=== PATIENT | female | born 1960 | race Caucasian/White ===

== ENCOUNTER → 2018-09-23 15:21 | Outpatient (CLI) | payer BC, SELFPAY ==
--- NOTE | 2018-09-23 | DI.MG.S_ITS ---
BILATERAL DIGITAL SCREENING MAMMOGRAM 3D/2D WITH CAD: 09/23/2018 CLINICAL: Routine screening. Family history of breast cancer. Comparison is made to exams dated: 09/16/2017 mammogram, 09/03/2016 mammogram, and 12/11/2015 mammogram - [facility]. The tissue of both breasts is heterogeneously dense. This may lower the sensitivity of mammography. Current study was also evaluated with a Computer Aided Detection (CAD) system. There is a benign biopsy clip in the right breast. No significant masses, calcifications, or other findings are seen in either breast. There has been no significant interval change. IMPRESSION: NEGATIVE There is no mammographic evidence of malignancy. A 1 year screening mammogram is recommended. This exam was interpreted at Station ID: [id number]. NOTE: For mammograms, a report in lay terms will be sent to the patient. Approximately 15% of breast malignancies will not be visualized mammographically. In the management of a palpable breast mass, a negative mammogram must not discourage biopsy of a clinically suspicious lesion. Electronically Signed By: Cameron malik/john:09/23/2018 16:24:33 copy to: EDNY PARTIDA copy to: JIMMY RUIZ letter sent: Normal Exam ACR BI-RADS Category 1: Negative [id number]
== END ==
PROVIDERS: Family Provider Family Medicine; PCP Family Medicine; Visit Provider Obstetrics & Gynecology
DX: Z12.31 Encounter for screening mammogram for malignant neoplasm of breast (principal); Z80.3 Family history of malignant neoplasm of breast
CPT/HCPCS: 77063; 77067

== ENCOUNTER → 2019-05-27 16:00 | Outpatient (CLI) | payer BC, SELFPAY ==
--- NOTE | 2019-05-27 | DI.MG.S_ITS ---
BILATERAL DIGITAL SCREENING MAMMOGRAM 3D/2D WITH CAD: 05/27/2019 CLINICAL: Routine screening. Family history of breast cancer. Comparison is made to exams dated: 09/23/2018 mammogram, 09/16/2017 mammogram, and 09/03/2016 mammogram - [facility]. The tissue of both breasts is heterogeneously dense. This may lower the sensitivity of mammography. Current study was also evaluated with a Computer Aided Detection (CAD) system. There is a biopsy clip in the right breast. No significant masses, calcifications, or other findings are seen in either breast. There has been no significant interval change. IMPRESSION: NEGATIVE There is no mammographic evidence of malignancy. A 1 year screening mammogram is recommended. This exam was interpreted at Station ID: [id number]. NOTE: For mammograms, a report in lay terms will be sent to the patient. Approximately 15% of breast malignancies will not be visualized mammographically. In the management of a palpable breast mass, a negative mammogram must not discourage biopsy of a clinically suspicious lesion. Electronically Signed By: Cameron malik/john:05/27/2019 16:34:20 copy to: DENY PARTIDA copy to: JIMMY RUIZ letter sent: Normal Exam ACR BI-RADS Category 1: Negative [id number]
== END ==
PROVIDERS: Family Provider Family Medicine; PCP Family Medicine; Visit Provider Obstetrics & Gynecology
DX: Z12.31 Encounter for screening mammogram for malignant neoplasm of breast (principal); Z80.3 Family history of malignant neoplasm of breast
CPT/HCPCS: 77063; 77067

== ENCOUNTER → 2020-03-03 11:18 | Outpatient (CLI) | payer BC, SELFPAY ==
--- NOTE | 2020-03-03 11:26 | DI.RAD.S_ITS ---
PROCEDURE: XR WRIST LT MIN 3V INDICATIONS: Pain TECHNIQUE: 4 views of the wrist were acquired. COMPARISON: None. FINDINGS: Bones: No fractures or dislocations. No suspicious bony lesions. Nonspecific marginal lucency projects in the 3rd metacarpal head. Soft tissues: No suspicious soft tissue calcifications. IMPRESSION: Negative examination. Dictated by: Hector Harper M.D. on 03/03/2020 at 14:09 Approved by: Hector Harper M.D. on 03/03/2020 at 14:10
--- NOTE | 2020-03-03 11:26 | DI.RAD.S_ITS ---
PROCEDURE: XR HAND RT MIN 3V INDICATIONS: Pain no trauma TECHNIQUE: 3 views of the hand(s) acquired. COMPARISON: None. FINDINGS: Bones: No fractures or dislocations. Carpal bones are normally aligned. No suspicious bony lesions. Osteophytosis and interphalangeal joint space narrowing is present at the 3rd and 5th DIP joints suggesting posttraumatic change. Soft tissues: No suspicious soft tissue calcifications. 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 Dictated by: Edyta Raymond M.D. on 03/03/2020 at 13:24 Approved by: Edyta Raymond M.D. on 03/03/2020 at 13:26
--- NOTE | 2020-03-03 11:26 | DI.RAD.S_ITS ---
PROCEDURE: XR HAND LT MIN 3V INDICATIONS: Pain no trauma TECHNIQUE: 3 views of the hand(s) acquired. COMPARISON: None. FINDINGS: Bones: No fractures or dislocations. Carpal bones are normally aligned. No suspicious bony lesions. Interphalangeal joint space narrowing and osteophytosis is present at the 3rd DIP joint. Soft tissues: No suspicious soft tissue calcifications. IMPRESSION: Degenerative change at the 3rd DIP joint likely posttraumatic in nature. Dictated by: Edyta Raymond M.D. on 03/03/2020 at 13:26 Approved by: Edyta Raymond M.D. on 03/03/2020 at 13:26
== END ==
PROVIDERS: Family Provider Family Medicine; PCP Family Medicine; Referring Provider Family Medicine; Visit Provider Family Medicine
DX: M79.642 Pain in left hand (principal); M79.641 Pain in right hand; M25.532 Pain in left wrist; M25.742 Osteophyte, left hand; M25.741 Osteophyte, right hand
CPT/HCPCS: 73110; 73130

== ENCOUNTER → 2020-03-18 08:39 | Outpatient (CLI) | payer BC, SELFPAY ==
--- NOTE | 2020-03-18 08:40 | DI.MRI.S_ITS ---
PROCEDURE: MR WRIST LT WO CON INDICATIONS: Wrist pain TECHNIQUE: Noncontrast coronal proton density fast spin echo and T2 fast spin echo with fat saturation; coronal 3-D gradient echo, axial T1 spin echo and T2 fast spin echo with fat saturation, sagittal T1 spin echo through the wrist. COMPARISON: [facility], CR, XR WRIST LT MIN 3V, 03/03/2020, 11:33. FINDINGS: Image quality: Excellent. Bones and cartilage: The carpal bones are normally aligned. No bone marrow contusions or fractures. No evidence for avascular necrosis. Mild degenerative changes are seen at the 1st carpometacarpal joint. Carpal ligaments: Increased signal is seen in the membranous portion of the scapholunate ligament, likely representing mild degeneration or degenerative perforation. There is no widening of the scapholunate interval. The lunotriquetral ligament is intact. Triangular fibrocartilage complex: There is a small central degenerative perforation in the triangle fibrocartilage disc. The radial and ulnar attachments are intact. Tendons and soft tissues: The carpal tunnel structures appear normal, including the median nerve. The ulnar nerve appears normal within Guyon's canal. All six extensor tendon compartments demonstrate normal morphology, without pathologic tendon sheath fluid. A lobulated ganglion cyst is seen posterior to the distal carpal tunnel that measures approximately 6 x 8 x 2 mm. An additional small ganglion cyst is seen at the dorsum of the wrist measuring 4 x 2 x 2 mm. IMPRESSION: 1. Small degenerative perforations are seen in the triangular fibrocartilage disc and the membranous portion of the scapholunate ligament without a significant ligament tear. 2. Mild 1st carpometacarpal joint degenerative osteoarthrosis. 3. Small ganglion cyst at the distal volar aspect of the wrist deep to the carpal tunnel measures 8 x 6 x 2 mm. A smaller ganglion cyst is seen at the dorsal aspect of the wrist measuring 4 x 2 x 2 mm. Dictated by: Juan Monge M.D. on 03/20/2020 at 8:53 Approved by: Juan Monge M.D. on 03/20/2020 at 9:02
== END ==
PROVIDERS: Family Provider Family Medicine; PCP Family Medicine; Referring Provider Family Medicine; Visit Provider Family Medicine
DX: M25.532 Pain in left wrist (principal); M18.12 Unilateral primary osteoarthritis of first carpometacarpal joint, left hand; M67.432 Ganglion, left wrist
CPT/HCPCS: 73221

== ENCOUNTER → 2020-03-24 11:23 | Outpatient (CLI) | payer BC, SELFPAY ==
[2020-03-24 12:14] LABS: Add Manual Diff / Slide Review NO; Basophils Absolute Auto 0 /uL (0-100); Basophils Percent Auto 0.5 % (0-2); Eosinophils Absolute Auto 100 /uL (0-450); Eosinophils Percent Auto 2.1 % (2-4); Hematocrit 39.8 % (36-46); Hemoglobin 13.1 g/dL (12.0-16.0); Lymphocytes Absolute Auto 1200 /uL (1100-4500); Lymphocytes Percent Auto 26.2 % (25-40); Mean Corpuscular HGB Conc 32.9 % (30-36); Mean Corpuscular Hemoglobin 29.9 PG (26-34); Mean Corpuscular Volume 90.8 fL (80-100); Monocytes Absolute Auto 300 /uL (0-900); Monocytes Percent Auto 7.3 % (3-14); Neutrophils Absolute Auto 2900 /uL (1500-7000); Neutrophils Percent Auto 63.9 % (50-75); Platelet Count 254 X10^3/uL (150-400); Red Blood Cell Count 4.39 X10^6/uL (4.0-5.2); Red Cell Distribution Width 12.9 % (11.6-14.8); White Blood Cell Count 4.5 X10^3/uL (4.5-11.0)
[2020-03-24 13:00] LABS: Alanine Aminotransferase 166 IU/L (<35); Albumin 4.8 g/dL (3.5-5.0); Albumin Globulin Ratio 1.9 (1.0-2.8); Alkaline Phosphatase 86 U/L (38-126); Aspartate Aminotransferase 100 IU/L (14-36); BUN Creatinine Ratio 32.4 (6-22); Bilirubin Total 0.8 mg/dL (0.2-1.3); Blood Urea Nitrogen 23 mg/dL (7-17); Calcium 10.2 mg/dL (8.4-10.2); Carbon Dioxide 29 mmol/L (22-32); Chloride 102 mmol/L (98-107); Cholesterol 184 mg/dL (140-199); Estimated Glomerular Filt Rate > 60.0 mL/min (>60); Globulin 2.5 g/dL (1.7-4.1); Glucose 101 mg/dL (70-100); HDL Cholesterol 62 mg/dL (40-60); HEMOLYSIS < 15 (0-50); LDL Cholesterol Calculated 99 mg/dL (<100); Potassium 5.1 mmol/L (3.4-5.1); Sodium 138 mmol/L (137-145); Total Protein 7.3 g/dL (6.3-8.2); Triglycerides 116 mg/dL (35-150)
== END ==
PROVIDERS: Family Provider Family Medicine; PCP Family Medicine; Referring Provider Family Medicine; Visit Provider Family Medicine
DX: E78.2 Mixed hyperlipidemia (principal)
CPT/HCPCS: 36415; 80053; 80061; 85025

== ENCOUNTER → 2020-04-07 09:43 | Outpatient (CLI) | payer BC, SELFPAY ==
--- NOTE | 2020-04-07 09:44 | DI.US.S_ITS ---
PROCEDURE: US ABDOMEN COMPLETE INDICATIONS: elevated lfts TECHNIQUE: Real-time scanning was performed of the abdominal and retroperitoneal organs, with image documentation. COMPARISON: [facility], CT, ABDOMEN/PELVIS WITH CONTRAST, 01/10/2011, 8:57. [facility], US, ABDOMEN COMPLETE, 11/13/2014, 12:52. [facility], US, ABDOMEN COMPLETE, 09/01/2015, 8:50. FINDINGS: Liver: Liver is normal in size and homogeneous in echotexture. Gallbladder: No findings of gallstones or sludge are seen. The gallbladder wall is not thickened, measuring 3 mm or less. No specific pericholecystic fluid is seen. The sonographic White sign is negative. Biliary ducts: Intrahepatic bile ducts are non-dilated. Extrahepatic bile duct caliber measures 3 mm. Normal is 6-7 mm or less in diameter, or 10 mm or less post-cholecystectomy. Pancreas: Visualized portions of the pancreas are sonographically normal. Spleen: Spleen is normal in size and homogeneous in echotexture. Kidneys: Kidneys are normal in size and echotexture. Right kidney measures 10.1 cm long; left kidney measures 10.4 cm long. No hydronephrosis is seen. However, there is trace right pelvicaliectasis. There is no nephrolithiasis. No solid masses. Aorta: Visualized aorta is normal in caliber at less than 3 cm. Iliacs: Proximal common iliac arteries are normal in caliber at less than 2.5 cm. IVC: Intrahepatic inferior vena cava is patent. Miscellaneous: No free abdominal fluid. IMPRESSION: Normal appearing liver. No biliary dilatation. Normal appearing gallbladder. Trace right kidney pelvicaliectasis, without danyell hydronephrosis. Dictated by: Kobe June M.D. on 04/07/2020 at 10:21 Approved by: Kobe June M.D. on 04/07/2020 at 10:24
== END ==
PROVIDERS: Family Provider Family Medicine; PCP Family Medicine; Referring Provider Family Medicine; Visit Provider Family Medicine
DX: R94.5 Abnormal results of liver function studies (principal)
CPT/HCPCS: 76700

== ENCOUNTER 2020-04-08 15:28 | Emergency (ER) | payer BC, SELFPAY ==
[2020-04-08 15:38] VITALS: BP 127/81; PULSE 99; RESP 22; TEMP 37; O2SAT 99; BMI 24.2
--- NOTE | 2020-04-08 15:58 | DI.RAD.S_ITS ---
PROCEDURE: XR WRIST RT MIN 3V INDICATIONS: wrist pain sp fall TECHNIQUE: 4 views of the wrist were acquired. COMPARISON: [facility], CR, XR HAND RT MIN 3V, 03/03/2020, 11:33. [facility], CT, CT HEAD/BRAIN WO CON, 04/08/2020, 16:24. [facility], CR, XR WRIST LT MIN 3V, 03/03/2020, 11:33. FINDINGS: Bones: No acute fractures or dislocations. No suspicious bony lesions. Remote trauma versus focal degenerative change can be seen involving the 3rd and 5th distal interphalangeal joints. Scaphoid view: No navicular fractures are seen. Soft tissues: No suspicious soft tissue calcifications. IMPRESSION: No acute fractures are seen. If there is snuffbox tenderness (or other clinical suspicion for a fracture not seen on these images) then a repeat examination would be recommended in 10 to 14 days, following splinting. Dictated by: Kobe June M.D. on 04/08/2020 at 15:45 Approved by: Kobe June M.D. on 04/08/2020 at 15:46
--- NOTE | 2020-04-08 15:59 | DI.CT.S_ITS ---
PROCEDURE: CT HEAD/BRAIN WO CON INDICATIONS: glf, hit head, n/v, dizzy TECHNIQUE: Noncontrast 4.5 mm thick angled axial sections acquired from the foramen magnum to the vertex, with coronal and sagittal reformats. For radiation dose reduction, the following was used: automated exposure control, adjustment of mA and/or kV according to patient size. COMPARISON: [facility], CT, SINUS WITHOUT CONTRAST, 07/09/2011, 8:58. [facility], CR, XR WRIST RT MIN 3V, 04/08/2020, 16:22. FINDINGS: Image quality: Excellent. CSF spaces: Basal cisterns are patent. No extra-axial fluid collections. Ventricles are normal in size and shape. Brain: No midline shift. No intracranial masses or hemorrhage. Mancini-white matter interface is normal. Skull and face: Calvarium and visualized facial bones are intact, without suspicious lesions. Sinuses: Visualized sinuses and mastoids are clear. IMPRESSION: No acute intracranial hemorrhage is seen. No acute intracranial process is seen. Dictated by: Kobe June M.D. on 04/08/2020 at 15:47 Approved by: Kobe June M.D. on 04/08/2020 at 15:48
[2020-04-08] MEDS: KETOROLAC 60 MG/2 ML VIAL 30 MG IM (17:08)
[2020-04-08 17:16] VITALS: BP 130/73; PULSE 86; RESP 14; O2SAT 99
--- NOTE | 2020-04-08 17:49 | ED_ITS ---
HPI - Fall <RANDY Ball-BC - Last Filed: 04/08/20 19:51> General Chief Complaint: Fall Stated Complaint: fall last night, hit head, R shldr pain Time Seen by Provider: 04/08/20 15:41 Source: patient and family Mode of arrival: Ambulatory Limitations: no limitations History of Present Illness HPI Narrative: The patient is a 59-year-old female former smoker with history of ganglionic cyst who presents with a chief complaint of a ground level fall last night where she hit her head. She states she had ?too much to drink in follow waited the bathroom. She does not remember the events. Her states that he heard her fall and went to check on her. We do not know if she lost consciousness or not. Now she feels lightheaded and dizzy, slightly nauseous at times. She denies any neck or back pain. She also complains of pain on her entire right arm, starting in her right wrist radiating up. She has not taken anything to feel better. She tried to apply ice, but it hurts her arm. She denies any numbness or tingling. She denies any neck pain or back pain. Related Data Home Medications Medication Instructions Recorded Confirmed [EYE DROPS ] Q DAY #0 06/04/11 03/03/20 Previous Rx's Medication Instructions Recorded loratadine-pseudoephedrine 1 t12 PO QDAY #30 01/07/12 [Claritin-D 12 Hour] ketorolac 10 mg PO TID PRN #14 tab 04/08/20 Allergies Allergy/AdvReac Type Severity Reaction Status Date / Time No Known Drug Allergies Allergy Verified 04/08/20 15:37 Review of Systems <TRACEY Ball - Last Filed: 04/08/20 19:51> Review of Systems Narrative: GENERAL: Denies chills, fatigue, malaise, fever, sweats. HEENT: Denies sinus pain, ear pain, sore throat, difficulty swallowing, dizziness. RESPIRATORY: Denies dyspnea, cough, wheezing, hemoptysis, sputum. CARDIOVASCULAR: Denies chest pain, palpitations, orthopnea, edema, GASTROINTESTINAL: See HPI : Denies dysuria, frequency, incontinence, hematuria, urinary retention. MUSCULOSKELETAL: See HPI SKIN: Denies rash, skin lesions, or other NEUROLOGIC: See HPI PSYCHIATRIC: No concerning psychosocial issues. 12 point review of systems is negative except for those stated above Patient History <TRACEY Ball - Last Filed: 04/08/20 19:51> Medical History (Updated 04/08/20 @ 17:52 by TRACEY Ball) Anorexia nervosa (Chronic) Chicken pox (Resolved) Environmental allergies (Chronic) Headache (Chronic ~1979) Herniated disc (Chronic) Measles (Resolved) Migraines (Resolved) Mumps (Resolved) Recurrent sinusitis (Chronic) Rosacea (Chronic) Vision disorder (Chronic) Surgical History (Updated 06/22/18 @ 20:34 by Liza Stewart) Anesthesia (Resolved) Breast cyst (Resolved) History of foot surgery (Resolved) History of surgery (Resolved ~06/04/11) History of tonsillectomy Status post hysterectomy (10/07/06) Status post laparoscopy (02/11/05) Family History (Updated 06/07/14 @ 00:00 by Conversion Provider) Brother Age: 55 Hypertension Father Age: 78 Heart disease Hypertension High cholesterol Osteoporosis Stroke Mother Age: 77 Hypertension Social History Smoking Status: Former smoker Smoking Status: Former smoker alcohol intake frequency: 3 or more drinks per day Substance Use Type: marijuana Exam <TRACEY Ball - Last Filed: 04/08/20 19:51> Narrative Exam Narrative: GENERAL: This is a well-nourished, well-developed patient, in no acute distress HEAD: Atraumatic. Normocephalic. No temporal or scalp tenderness. EYES: Pupils equal round and reactive. Extraocular motions intact. No scleral icterus. No injection or drainage. ENT: Nose without bleeding, purulent drainage or septal hematoma. Throat without erythema, tonsillar hypertrophy or exudate. Uvula midline. Airway patent. NECK: Trachea midline. No JVD or lymphadenopathy. Supple, nontender, no meningeal signs. CARDIOVASCULAR: Regular rate and rhythm RESPIRATORY: Clear to auscultation. Breath sounds equal bilaterally. No wheezes, rales, or rhonchi. No cough. No increased respiratory effort. No accessory muscle use. GASTROINTESTINAL: Abdomen soft, non-tender, nondistended. No hepato- splenomegaly, or palpable masses. No guarding. EXTREMITIES: General pain to palpation right hand and wrist, decreased range of motion all stacy. Positive snuffbox tenderness to palpation right wrist. Full range of motion noted right elbow, full range of motion noted right shoulder. No pain to palpation right elbow or shoulder. BACK: Nontender without deformity or crepitance. No flank tenderness. NEURO: AOx3. SKIN: No rash or erythema on visible skin. Initial Vital Signs Initial Vital Signs: Vital Signs Temperature 98.6 F 04/08/20 15:38 Pulse Rate 99 H 04/08/20 15:38 Respiratory Rate 22 04/08/20 15:38 Blood Pressure 127/81 04/08/20 15:38 Pulse Oximetry 99 04/08/20 15:38 <Derrek Krueger DO - Last Filed: 04/09/20 10:56> Initial Vital Signs Initial Vital Signs: Vital Signs Temperature 98.6 F 04/08/20 15:38 Pulse Rate 99 H 04/08/20 15:38 Respiratory Rate 22 04/08/20 15:38 Blood Pressure 127/81 04/08/20 15:38 Pulse Oximetry 99 04/08/20 15:38 Procedures <TRACEY Ball - Last Filed: 04/08/20 19:51> Orthopedic Splinting/Casting Injury #1: Side: right Upper Extremity Injury Location: wrist Upper Extremity Immobilizer: thumb spica Post splinting neuro exam: intact Post splinting vascular exam: intact Placed by: Nursing Scores <TRACEY Ball - Last Filed: 04/08/20 19:51> GCS [place] coma scale eye opening: Spontaneous Rosa coma scale verbal response: Orientated [place] coma scale motor response: Obey commands [place] coma scale total score: 15 Nexus Score for C-Spine Focal Neurologic deficit present: No Midline spinal tenderness present: No Altered level of conciousness present: No Intoxication present: No Distracting Injury Present: No Nexus Criteria for C-spine: 0 Course <TRACEY Ball - Last Filed: 04/08/20 19:51> Orders Ordered: Discontinued Medications Ketorolac Tromethamine (Toradol) 30 mg IM NOW ONE Stop: 04/08/20 17:04 Last Admin: 04/08/20 17:08 Dose: 30 mg Documented by: KBROTEM Ketorolac Tromethamine (Toradol 10mg Prepack) 1 bottle MISC SEEINSTR ONE Stop: 04/08/20 17:59 Last Admin: 04/08/20 18:05 Dose: 1 bottle Documented by: SHAHAB Vital Signs Vital signs: Vital Signs - 8 hr 04/08/20 15:38 04/08/20 17:16 04/08/20 17:57 Temperature 98.6 F Pulse Rate 99 H 86 82 Respiratory Rate 22 14 16 Blood Pressure 127/81 130/73 141/66 H Pulse Oximetry 99 99 100 04/08/20 18:17 Temperature 98.3 F Pulse Rate 76 Respiratory Rate 14 Blood Pressure 142/88 H Pulse Oximetry 100 <Derrek Krueger DO - Last Filed: 04/09/20 10:56> Orders Ordered: Discontinued Medications Ketorolac Tromethamine (Toradol) 30 mg IM NOW ONE Stop: 04/08/20 17:04 Last Admin: 04/08/20 17:08 Dose: 30 mg Documented by: PATRIA Ketorolac Tromethamine (Toradol 10mg Prepack) 1 bottle MISC SEEINSTR ONE Stop: 04/08/20 17:59 Last Admin: 04/08/20 18:05 Dose: 1 bottle Documented by: SHAHAB Vital Signs Vital signs: Vital Signs - 8 hr 04/08/20 15:38 04/08/20 17:16 04/08/20 17:57 Temperature 98.6 F Pulse Rate 99 H 86 82 Respiratory Rate 22 14 16 Blood Pressure 127/81 130/73 141/66 H Pulse Oximetry 99 99 100 04/08/20 18:17 Temperature 98.3 F Pulse Rate 76 Respiratory Rate 14 Blood Pressure 142/88 H Pulse Oximetry 100 MDM - Fall <TRACEY Ball - Last Filed: 04/08/20 19:51> Imaging Data CT scan - head: Radiologist's Impression: [address] [place] [id number] Scan Report Signed Patient: Jeannine Barbosa [facility]#: [id number] : 1960cct:[id number] Age/Sex: 59 / FDate of Service: 04/08/20 Loc: ED Accession Number: [id number] Procedure: CT head/brain wo con Ordering Provider: Kathie Cifuentes PROCEDURE: CT HEAD/BRAIN WO CON INDICATIONS: glf, hit head, n/v, dizzy TECHNIQUE: Noncontrast 4.5 mm thick angled axial sections acquired from the foramen magnum to the vertex, with coronal and sagittal reformats. For radiation dose reduction, the following was used: automated exposure control, adjustment of mA and/or kV according to patient size. COMPARISON: [facility], CT, SINUS WITHOUT CONTRAST, 07/09/2011, 8:58. [facility], CR, XR WRIST RT MIN 3V, 04/08/2020, 16:22. FINDINGS: Image quality: Excellent. CSF spaces: Basal cisterns are patent. No extra-axial fluid collections. Ventricles are normal in size and shape. Brain: No midline shift. No intracranial masses or hemorrhage. Mancini-white matter interface is normal. Skull and face: Calvarium and visualized facial bones are intact, without suspicious lesions. Sinuses: Visualized sinuses and mastoids are clear. IMPRESSION: No acute intracranial hemorrhage is seen. No acute intracranial process is seen. Dictated by: Kobe June M.D. on 04/08/2020 at 15:47 Approved by: Kobe June M.D. on 04/08/2020 at 15:48 Extremity x-ray #1: Radiologist's Impression: [address] [place] [address] XRay Report Signed Patient: Jeannine Barbosa [facility]#: [id number] : [id number]:[id number] Age/Sex: 59 / FDate of Service: 04/08/20 Loc: ED Accession Number: [id number] Procedure: XR wrist RT min 3V Ordering Provider: Kathie Cifuentes- PROCEDURE: XR WRIST RT MIN 3V INDICATIONS: wrist pain sp fall TECHNIQUE: 4 views of the wrist were acquired. COMPARISON: [facility], CR, XR HAND RT MIN 3V, 03/03/2020, 11:33. [facility], CT, CT HEAD/BRAIN WO CON, 04/08/2020, 16:24. [facility], CR, XR WRIST LT MIN 3V, 03/03/2020, 11:33. FINDINGS: Bones: No acute fractures or dislocations. No suspicious bony lesions. Remote trauma versus focal degenerative change can be seen involving the 3rd and 5th distal interphalangeal joints. Scaphoid view: No navicular fractures are seen. Soft tissues: No suspicious soft tissue calcifications. IMPRESSION: No acute fractures are seen. If there is snuffbox tenderness (or other clinical suspicion for a fracture not seen on these images) then a repeat examination would be recommended in 10 to 14 days, following splinting. Dictated by: Kobe June M.D. on 04/08/2020 at 15:45 Approved by: Kobe June M.D. on 04/08/2020 at 15:46 [facility] Narrative Medical decision making narrative: The patient is a 59-year-old female who presents with a chief complaint of a ground level fall last night. Given that she does not remember the event, believes that was due to drinking too much as she was intoxicated at the time, her current symptoms of lightheadedness and dizziness and nausea, did obtain a CT of her head. This came back with no acute findings. Imaging of her right arm also has no acute findings. Elected to image her right hand and wrist as this is where she is most painful. However she does have snuffbox pain to palpation, so she was placed in a thumb spica splint. She was given Toradol for pain control gave her prescription thereof. Discussed at length follow up with primary care provider, also gave her contact information to [facility]. Encouraged her to not drink as much in the future. Discussed at length brain rest over the next few days. Patient and have no questions or concerns upon discharge and state understanding of return precautions as well as follow-up care. Discharge Plan Departure Patient Disposition: Home Clinical Impression: Wrist pain Qualifiers: Laterality: right Qualified Code(s): M25.531 - Pain in right wrist Concussion Qualifiers: Encounter type: initial encounter Loss of consciousness presence/duration: without LOC Qualified Code(s): S06.0X0A - Concussion without loss of consciou sness, initial encounter Discharge Date/Time: 04/08/20 18:17 Instructions: DI for Concussion, How To Perform RICE (Rest, Ice, Compress, Elevate), How to Prevent Falls, How to Take Care of Your Splint Activity Restrictions/Additional Instructions: Thank you for trusting us with your care today. As I discussed, your x-ray shows no acute fracture. This does not rule out a soft tissue injury such as a ligament or tendon injury. It is important that you follow up with primary care provider, especially if worsening or no improvement. There can be fractures that did not show up on initial x-ray, which is why we have placed you in a splint. Please use rest ice compression elevation as well as cict-fvi-rhysfek pain medications as needed and able. I gave you a prescription of ketorolac or Toradol. I sent this to [email or web address]. I have given you a prescription of Toradol. This is an NSAID. Do not combine it with other NSAIDs such as Aleve or ibuprofen. I suggest taking it with some food, as it can irritate your stomach. ] I have also included contact information to [facility]. Please come back to the emergency department for any acute concerns. Please follow-up with care provider in the next few days. Prescriptions: New ketorolac 10 mg tablet 10 mg PO TID PRN (Reason: pain) Qty: 14 RF: 0 No Action [EYE DROPS ] Q DAY Qty: 0 RF: 0 loratadine-pseudoephedrine [Claritin-D 12 Hour] 5 MG/120 MG tablet extended release 12 hr 1 t12 PO QDAY Qty: 30 RF: 1 Referrals: [facility] [Provider Group] Ronn Gaitan MD [Primary Care Provider] - Stand Alone Forms: Work Release Note <Derrek Krueger DO - Last Filed: 04/09/20 10:56> [facility] Marquitaature Attestation: I was immediately available in the department for consultation. This documentation has been reviewed and I agree with assessment and plan. Supervised by Derrek Krueger DO
[2020-04-08 17:57] VITALS: BP 141/66; PULSE 82; RESP 16; O2SAT 100
[2020-04-08] MEDS: KETOROLAC 10MG PREPACK 1 BOTTLE MISC (18:05)
[2020-04-08 18:17] VITALS: BP 142/88; PULSE 76; RESP 14; TEMP 36.8; O2SAT 100
== END 2020-04-08 18:17 | disposition home or self-care (01) ==
PROVIDERS: Emergency Provider Nurse Practitioner Family; Family Provider Family Medicine; PCP Family Medicine
DX: S06.0X0A Concussion without loss of consciousness, initial encounter (principal); M25.531 Pain in right wrist; W19.XXXA Unspecified fall, initial encounter
CPT/HCPCS: 29125; 70450; 73110; 96372; 99284; J1885

== ENCOUNTER → 2020-04-13 16:01 | Outpatient (CLI) | payer BC, SELFPAY ==
--- NOTE | 2020-04-13 16:05 | DI.RAD.S_ITS ---
PROCEDURE: XR CERVICAL SPINE 2V OR 3V INDICATIONS: old injury; acute neck pain TECHNIQUE: 3 view(s) of the cervical spine were acquired. COMPARISON: None. FINDINGS: Bones: No fractures or dislocations to the 7 level. The lateral masses of C1 appear intact on the odontoid view. No suspicious bony lesions. Loss of lordosis which could be related to muscle spasm, rigidity or simply positional. Multilevel disc degeneration, severe at the C4-C5, C5-C6, C6-C7 and C7-T1 levels. Mild multilevel mid and lower cervical spine facet joint arthropathy and uncovertebral hypertrophy. Soft tissues: No prevertebral soft tissue swelling. IMPRESSION: Loss of lordosis and multilevel spondylosis. Dictated by: Terrell Mejia [facility] Interpreted: Hector Harper MD on 04/13/2020 at 16:55 Approved by: Hector Harper M.D. on 04/13/2020 at 17:08
== END ==
PROVIDERS: Family Provider Family Medicine; PCP Family Medicine; Referring Provider Family Medicine; Visit Provider Family Medicine
DX: M54.2 Cervicalgia (principal); M47.812 Spondylosis without myelopathy or radiculopathy, cervical region; Z87.828 Personal history of other (healed) physical injury and trauma
CPT/HCPCS: 72040

== ENCOUNTER → 2020-04-17 06:35 | Outpatient (CLI) | payer BC, SELFPAY ==
--- NOTE | 2020-04-17 06:36 | DI.MRI.S_ITS ---
PROCEDURE: MR WRIST RT WO CON INDICATIONS: Pain, brusing s/p fall on right wrist TECHNIQUE: Noncontrast coronal proton density fast spin echo and T2 fast spin echo with fat saturation; coronal 3-D gradient echo, axial T1 spin echo and T2 fast spin echo with fat saturation, sagittal T1 spin echo through the wrist. COMPARISON: [facility], CR, XR WRIST RT MIN 3V, 04/08/2020, 16:22. [facility], MR, MR WRIST LT WO CON, 03/18/2020, 8:48. FINDINGS: Image quality: Excellent. Bones and cartilage: The carpal bones are normally aligned. No bone marrow contusions or fractures. No evidence for avascular necrosis. Scattered degenerative changes and spurring. Carpal ligaments: Slight widened appearance of the scapholunate interval however technically measures within normal limits The scapholunate and lunotriquetral ligaments appear intact. In the absence of intra-articular contrast, the extrinsic carpal ligaments are not well identified. On sagittal images, the pisohamate ligament appears intact. Triangular fibrocartilage complex: The triangular fibrocartilage appears intact. The adjacent meniscal homolog appears normal in the absence of intra-articular contrast. The extensor carpi ulnaris tendon is normal in location and morphology. Tendons and soft tissues: The carpal tunnel structures appear normal, including the median nerve. The ulnar nerve appears normal within Guyon's canal. There is mild extensor carpi radialis longus tenosynovitis. No soft tissue ganglion cysts. IMPRESSION: No evidence of occult fracture. Mild extensor carpi radialis longus tenosynovitis. Dictated by: Hector Harper M.D. on 04/17/2020 at 8:11 Approved by: Hector Harper M.D. on 04/17/2020 at 9:03
== END ==
PROVIDERS: Family Provider Family Medicine; PCP Family Medicine; Referring Provider Family Medicine; Visit Provider Family Medicine
DX: S60.211A Contusion of right wrist, initial encounter (principal); M25.531 Pain in right wrist; M65.831 Other synovitis and tenosynovitis, right forearm; W19.XXXA Unspecified fall, initial encounter
CPT/HCPCS: 73221

== ENCOUNTER → 2020-05-16 16:07 | Outpatient (CLI) | payer BC, SELFPAY ==
--- NOTE | 2020-05-16 16:09 | DI.MRI.S_ITS ---
PROCEDURE: MR CERVICAL SPINE WO CON INDICATIONS: neck pain TECHNIQUE: Noncontrast sagittal T1 spin echo and T2 fast spin echo, sagittal STIR, foraminal oblique sagittal T2 fast spin echo, and axial gradient echo or T2 fast spin echo through the cervical spine. COMPARISON: [facility], CR, XR CERVICAL SPINE 2V OR 3V, 04/13/2020, 15:56. FINDINGS: Image quality: This examination is limited by involuntary motion artifact. Alignment and Curvature: There is reversal of the normal cervical lordosis, with apex at the C4-C5 level. There is minimal retrolisthesis seen at C4-C5 and C5-C6. Bone Marrow: Marrow demonstrates normal overall signal. Spinal Cord: Visualized spinal cord has normal size and signal. No cerebellar tonsillar herniation. Paraspinous Soft Tissues: No paravertebral masses. Prevertebral soft tissues are normal in thickness. C2-C3: Mild loss of disc height is seen. Loss of disc signal is seen. A mild degree of generalized disc osteophyte complex is seen. There is moderate to prominent right-sided and mild left-sided facet hypertrophy. There is moderate to severe right-sided and at least moderate left-sided neural foraminal narrowing seen. No significant central canal narrowing is seen. C3-C4: Moderate loss of disc height is seen. Loss of disc signal is seen. Moderate disc osteophyte complex is seen, which is eccentric to the left. Uncovertebral joint hypertrophy is seen at this level. Mild to moderate facet hypertrophy is seen. There is moderate to severe bilateral neural foraminal narrowing seen, left worse than right. Moderate central canal narrowing is seen. There is associated mass effect upon the ventral spinal cord. C4-C5: At least moderate loss of disc height and disc signal can be seen. At least moderate disc osteophyte complex is seen, which is eccentric to the right. There is a central/right disc osteophyte protrusion seen. Uncovertebral joint hypertrophy is seen at this level. Moderate facet joint hypertrophy is seen. Moderate to severe bilateral neural foraminal narrowing is seen. Moderate to severe central canal narrowing is seen. There is associated mass effect upon the ventral spinal cord. C5-C6: Moderate loss of disc height is seen. Loss of disc signal is seen. Moderate generalized disc osteophyte complex is seen. There is a central disc osteophyte protrusion seen. Uncovertebral joint hypertrophy is seen at this level. Mild facet joint hypertrophy is seen. Moderate to severe bilateral neural foraminal narrowing can be seen. At least moderate central canal narrowing is seen. There is associated mass effect upon the ventral spinal cord. C6-C7: Moderate to severe loss of disc height and disc signal can be seen. At least moderate disc osteophyte complex is seen, with a central/left disc osteophyte protrusion, as on series 5 images 28 and 29. Uncovertebral joint hypertrophy is seen at this level. Mild to moderate facet hypertrophy is seen. There is moderate to severe left-sided and moderate right-sided neural foraminal narrowing seen. At least moderate central canal narrowing is seen, with associated partial ventral cord flattening. C7-T1: At least moderate loss of disc height and disc signal can be seen. At least moderate disc osteophyte complex is seen. There is a mild central disc osteophyte protrusion seen. Moderate facet joint hypertrophy is seen. Moderate bilateral neural foraminal narrowing is seen. Moderate central canal narrowing is seen. IMPRESSION: Multiple levels of relatively prominent cervical spine degenerative change are seen. There is reversal of the normal cervical lordosis, with the apex at the C3-C4 level. Dictated by: Kobe June M.D. on 05/16/2020 at 16:46 Approved by: Kobe June M.D. on 05/16/2020 at 16:52
== END ==
PROVIDERS: Family Provider Family Medicine; PCP Family Medicine; Referring Provider Family Medicine; Visit Provider Family Medicine
DX: M50.31 Other cervical disc degeneration, high cervical region (principal); M40.50 Lordosis, unspecified, site unspecified
CPT/HCPCS: 72141

== ENCOUNTER → 2020-06-16 14:20 | Outpatient (CLI) | payer BC, SELFPAY ==
--- NOTE | 2020-06-16 | DI.MG.S_ITS ---
BILATERAL DIGITAL SCREENING MAMMOGRAM 3D/2D WITH CAD: 06/16/2020 CLINICAL: Routine screening. Family history of breast cancer. Comparison is made to exams dated: 05/27/2019 mammogram, 09/23/2018 mammogram, 09/16/2017 mammogram, and 09/03/2016 mammogram - [facility]. The tissue of both breasts is heterogeneously dense. This may lower the sensitivity of mammography. Current study was also evaluated with a Computer Aided Detection (CAD) system. There is a biopsy clip in the right breast. No significant masses, calcifications, or other findings are seen in either breast. There has been no significant interval change. IMPRESSION: NEGATIVE There is no mammographic evidence of malignancy. A 1 year screening mammogram is recommended. This exam was interpreted at Station ID: [id number]. NOTE: For mammograms, a report in lay terms will be sent to the patient. Approximately 15% of breast malignancies will not be visualized mammographically. In the management of a palpable breast mass, a negative mammogram must not discourage biopsy of a clinically suspicious lesion. Electronically Signed By: Edyta rosario/john:06/20/2020 10:16:46 copy to: DENY PARTIDA copy to: JIMMY RUIZ letter sent: Normal Exam ACR BI-RADS Category 1: Negative 3341F
== END ==
PROVIDERS: Family Provider Family Medicine; PCP Family Medicine; Referring Provider Family Medicine; Visit Provider Family Medicine
DX: Z12.31 Encounter for screening mammogram for malignant neoplasm of breast (principal); Z80.3 Family history of malignant neoplasm of breast
CPT/HCPCS: 77063; 77067

== ENCOUNTER → 2021-06-19 15:49 | Outpatient (CLI) | payer BC, SELFPAY ==
--- NOTE | 2021-06-19 15:50 | DI.MG.S_ITS ---
BILATERAL DIGITAL SCREENING MAMMOGRAM 3D/2D WITH CAD: 06/19/2021 CLINICAL: Routine screening. Family history of breast cancer. Comparison is made to exams dated: 06/16/2020 mammogram, 05/27/2019 mammogram, 09/23/2018 mammogram, and 09/16/2017 mammogram - [facility]. The tissue of both breasts is heterogeneously dense. This may lower the sensitivity of mammography. Current study was also evaluated with a Computer Aided Detection (CAD) system. There is a biopsy clip in the right breast. No significant masses, calcifications, or other findings are seen in either breast. There has been no significant interval change. IMPRESSION: NEGATIVE There is no mammographic evidence of malignancy. A 1 year screening mammogram is recommended. This exam was interpreted at Station ID: [id number]. NOTE: For mammograms, a report in lay terms will be sent to the patient. Approximately 15% of breast malignancies will not be visualized mammographically. In the management of a palpable breast mass, a negative mammogram must not discourage biopsy of a clinically suspicious lesion. Electronically Signed By: Juan zeng/john:06/20/2021 09:44:41 copy to: JIMMY RUIZ letter sent: Normal Exam ACR BI-RADS Category 1: Negative 3341F
== END ==
PROVIDERS: Family Provider Family Medicine; PCP Family Medicine; Referring Provider Obstetrics & Gynecology; Visit Provider Obstetrics & Gynecology
DX: Z12.31 Encounter for screening mammogram for malignant neoplasm of breast (principal); Z80.3 Family history of malignant neoplasm of breast
CPT/HCPCS: 77063; 77067

== ENCOUNTER → 2022-02-08 13:27 | Outpatient (CLI) | payer BC, SELFPAY ==
[2022-02-08 15:48] LABS: Alanine Aminotransferase 62 IU/L (<35); Albumin 4.9 g/dL (3.5-5.0); Alkaline Phosphatase 78 U/L (38-126); Aspartate Aminotransferase 36 IU/L (14-36); BUN Creatinine Ratio 33.3 (6-22); Bilirubin Total 0.6 mg/dL (0.2-1.3); Blood Urea Nitrogen 21 mg/dL (7-17); Calcium 9.4 mg/dL (8.4-10.2); Carbon Dioxide 28 mmol/L (22-32); Chloride 104 mmol/L (98-107); Cholesterol 229 mg/dL (140-199); Creatine Kinase 65 U/L (30-135); Estimated Glomerular Filt Rate > 60 mL/min (>60); Globulin 2.4 g/dL (1.7-4.1); Glucose 94 mg/dL (80-110); HDL Cholesterol 59 mg/dL (40-60); HEMOLYSIS < 15 (0-50); Iron 64 ug/dL (37-170); LDL Cholesterol Calculated 157 mg/dL (<100); Potassium 3.8 mmol/L (3.4-5.1); Sodium 141 mmol/L (137-145); Total Protein 7.3 g/dL (6.3-8.2); Triglycerides 64 mg/dL (35-150)
[2022-02-08 15:59] LABS: Percent Iron Saturation 25 % (15-50); Total Iron Binding Capacity 260 ug/dL (265-497); Transferrin 225 mg/dL (206-381)
[2022-02-08 16:19] LABS: TSH w/ Reflex to FT4 1.55 uIU/mL (0.47-4.68)
[2022-02-09 03:49] LABS: Ceruloplasmin 23.9 mg/dL (19.0-39.0)
[2022-02-12 13:33] LABS: Smooth Muscle Antibody 4 Units (0-19)
[2022-02-13 17:08] LABS: ANA Screen, IFA Positive (.)
== END ==
PROVIDERS: Family Provider Family Medicine; PCP Internal Medicine; Referring Provider Internal Medicine; Visit Provider Internal Medicine
DX: R94.5 Abnormal results of liver function studies (principal); Z13.6 Encounter for screening for cardiovascular disorders
CPT/HCPCS: 36415; 80053; 80061; 82390; 82550; 83516; 83540; 83550; 84443; 86038

== ENCOUNTER → 2022-05-02 11:32 | Outpatient (CLI) | payer BC, SELFPAY ==
[2022-05-02 12:24] LABS: COVID19 -Nasal RAPID Negative (Negative)
== END ==
PROVIDERS: Family Provider Family Medicine; PCP Internal Medicine; Visit Provider Surgery
DX: Z20.822 Contact with and (suspected) exposure to COVID-19 (principal); Z01.812 Encounter for preprocedural laboratory examination
CPT/HCPCS: 87635; C9803

== ENCOUNTER 2022-05-03 08:50 | Day surgery (SDC) | payer BC, SELFPAY ==
[2022-05-03 09:23] VITALS: BMI 25.8
[2022-05-03 09:37] VITALS: BP 153/78; PULSE 70; RESP 14; TEMP 36.3; O2SAT 98
--- NOTE | 2022-05-03 09:38 | PM.HP.1 ---
History of Present Illness History of Present Illness Date Patient Seen: 05/03/22 Time Patient Seen: 09:38 Chief complaint: Colonoscopy Narrative: Screening colonoscopy for cancer. this is her second, last one was 10 years ago. No family history or symptoms of concern. Patient History Medical History Anorexia nervosa Chicken pox COVID-19 (~01/2022) Environmental allergies Headache (~1979) Herniated disc Measles Migraines Mumps Recurrent sinusitis Rosacea Vision disorder Surgical History Anesthesia Breast cyst History of foot surgery History of surgery (~06/04/11) History of tonsillectomy Status post hysterectomy (10/07/06) Status post laparoscopy (02/11/05) Family & Social History Family History Brother Age: 57 Hypertension Father Age: 80 Heart disease Hypertension High cholesterol Osteoporosis Stroke Mother Age: 79 Hypertension Social History: household members spouse Tobacco & Substance use: Smoking Status Former smoker alcohol intake current alcohol intake frequency 0-2 drinks per day Substance Use Type does not use Meds Home Medications and Allergies Home Medications Medication Instructions Recorded Confirmed Type [EYE DROPS ] 1 100 ml EYE-BOTH Q DAY ##0 06/04/11 05/03/22 History loratadine 10 mg tablet (Claritin) 10 mg PO QPM 01/01/22 05/03/22 History metronidazole 0.75 % lotion 1 applic topical DAILY rosacea 01/01/22 05/03/22 History Allergies Allergy/AdvReac Type Severity Reaction Status Date / Time No Known Drug Allergies Allergy Verified 05/03/22 09:18 Review of Systems Review of Systems ROS: Yes All systems reviewed with the patient and are negative except as otherwise documented Exam Const General: cooperative, healthy appearing and comfortable [facility] Head: normocephalic and atraumatic Eyes General: appearance normal, both eyes and all related structures Sclera: sclerae normal Neck Neck: trachea midline Chest Chest: normal inspection of the chest Resp Effort & Inspection: normal respiratory effort Cardio Rate: regular rate Rhythm: regular rhythm GI Inspection: normal to inspection Skin General: no rashes or lesions noted Hair: normal Neuro General: patient alert, patient awake and patient oriented x3 Extrem General: full ROM Psych Appearance: grossly normal Thought Process: normal Judgment: judgment good Assessment & Plan Assessment & Plan narrative: Colon cancer screening Plan: colonoscopy with moderate sedation COVID-19 COVID-19 status: Negative Time Spent With Patient Time with patient: less than 30 minutes Critical Care time: I spent a total of [] minutes of critical care time on this patient's care today; this time is exclusive of procedural time.
[2022-05-03] MEDS: MIDAZOLAM 5 MG/5 ML VIAL 10 MG IV (10:01)
[2022-05-03] MEDS: fentaNYL 100 MCG/2 ML INJ 200 MCG IV (10:01)
--- NOTE | 2022-05-03 10:10 | PM.OP.COLON ---
Operative Date/Time/Diagnoses Date of procedure: 05/03/22 Time of procedure: 10:10 Pre-op diagnosis: Colon cancer screening Post-op diagnosis: same Procedure & Clinicians Study performed: Colonoscopy with moderate sedation Same procedure as scheduled: Yes Indications: Colon cancer screening Surgeon: Roxanne Vidal Procedure Notes Procedure in detail: Preop diagnosis: Colon cancer screening Postop diagnosis: Same Operative procedure: Colonoscopy with moderate sedation Surgeon: Audra Vidal MD Anesthetic: Fentanyl 200 mcg, Versed 10 mg Findings: No polyps, no diverticulosis. Procedure: Patient placed in lateral position. Rectal exam performed showing normal tone no masses. Scope inserted to the rectum and advanced to ileocecal valve with minimal difficulty. Abdominal pressure required in the ascending colon. Retroflex performed in the rectum. Impression: Normal colonoscopy. No polyps, no diverticulosis. Plan: Repeat colonoscopy in 10 years unless otherwise indicated by change in clinical condition Sedation minutes: 17 Specimen(s): none sent Complications: none Post-procedure Recommendations: Colonoscopy in 10 years Follow up: as needed Disposition: PACU
[2022-05-03 10:13] VITALS: BP 117/74; PULSE 77; RESP 12; TEMP 36.1; O2SAT 96
[2022-05-03 10:18] VITALS: BP 116/68; PULSE 68; RESP 11; O2SAT 95
[2022-05-03 10:23] VITALS: BP 115/67; PULSE 68; RESP 13; O2SAT 97
[2022-05-03 10:28] VITALS: BP 112/60; PULSE 70; RESP 12; O2SAT 97
[2022-05-03 10:32] VITALS: BP 119/78; PULSE 70; RESP 14; TEMP 36.1; O2SAT 97
== END 2022-05-03 10:57 | disposition home or self-care (01) ==
PROVIDERS: Family Provider Family Medicine; PCP Internal Medicine; Referring Provider Surgery; Visit Provider Surgery
PROC: 0DJD8ZZ Inspection of Lower Intestinal Tract, Via Natural or Artificial Opening Endoscopic (ICD-10-PCS; CPT 45378; principal; 2022-05-03 10:00)
DX: Z12.11 Encounter for screening for malignant neoplasm of colon (principal)
CPT/HCPCS: 45378; 99152; J2250; J3010

== ENCOUNTER → 2022-05-13 12:21 | Outpatient (CLI) | payer BC, SELFPAY | PROVIDERS: Family Provider Family Medicine; PCP Internal Medicine; Referring Provider Obstetrics & Gynecology; Visit Provider Obstetrics & Gynecology | DX: Z13.820 Encounter for screening for osteoporosis (principal); Z78.0 Asymptomatic menopausal state; Z90.710 Acquired absence of both cervix and uterus | CPT/HCPCS: 77080 ==

== ENCOUNTER → 2022-07-24 15:57 | Outpatient (CLI) | payer BC, SELFPAY ==
--- NOTE | 2022-07-24 15:58 | DI.MG.S_ITS ---
BILATERAL DIGITAL SCREENING MAMMOGRAM 3D/2D WITH CAD: 07/24/2022 CLINICAL: Routine screening. Family history of breast cancer. Comparison is made to exams dated: 06/19/2021 mammogram, 06/16/2020 mammogram, and 05/27/2019 mammogram - [facility]. Both breasts are heterogeneously dense, which may obscure small masses (category c / 51-75% glandular tissue). Current study was also evaluated with a Computer Aided Detection (CAD) system. There is a biopsy clip in the right breast. No significant masses, calcifications, or other findings are seen in either breast. There has been no significant interval change. IMPRESSION: NEGATIVE There is no mammographic evidence of malignancy. A 1 year screening mammogram is recommended. Based on the Tyrer Cuzick model (a risk assessment model) the patient's lifetime risk is 14.6% and her 10 year risk is 6.2%. According to the ACR, ACS, and NCCN guidelines, an annual breast MRI exam along with mammogram is recommended if the patient's lifetime risk is 20% or greater. This exam was interpreted at Station ID: [id number]. NOTE: For mammograms, a report in lay terms will be sent to the patient. Approximately 15% of breast malignancies will not be visualized mammographically. In the management of a palpable breast mass, a negative mammogram must not discourage biopsy of a clinically suspicious lesion. Electronically Signed By: Sammy Jeffers M.D., jr/john:07/25/2022 11:16:16 copy to: JIMMY RUIZ letter sent: Normal Exam ACR BI-RADS Category 1: Negative 3341F
== END ==
PROVIDERS: Family Provider Family Medicine; PCP Internal Medicine; Referring Provider Obstetrics & Gynecology; Visit Provider Obstetrics & Gynecology
DX: Z12.31 Encounter for screening mammogram for malignant neoplasm of breast (principal); Z80.3 Family history of malignant neoplasm of breast
CPT/HCPCS: 77063; 77067

== ENCOUNTER → 2023-01-06 06:59 | Outpatient (CLI) | payer BC, SELFPAY ==
[2023-01-06 08:35] LABS: Alanine Aminotransferase 56 IU/L (<35); Albumin 4.9 g/dL (3.5-5.0); Albumin Globulin Ratio 1.9 (1.0-2.8); Alkaline Phosphatase 78 U/L (38-126); Aspartate Aminotransferase 40 IU/L (14-36); Bilirubin Total 0.8 mg/dL (0.2-1.3); Bilirubin Unconjugated 0.6 mg/dL (0.0-1.1); Blood Urea Nitrogen 20 mg/dL (7-17); Calcium 9.9 mg/dL (8.4-10.2); Carbon Dioxide 30 mmol/L (22-32); Chloride 101 mmol/L (98-107); Cholesterol 219 mg/dL (140-199); Estimated Glomerular Filt Rate > 60 mL/min (>60); Globulin 2.6 g/dL (1.7-4.1); Glucose 101 mg/dL (80-110); HDL Cholesterol 78 mg/dL (40-60); HEMOLYSIS < 15 (0-50); LDL Cholesterol Calculated 109 mg/dL (<100); Potassium 4.6 mmol/L (3.4-5.1); Sodium 139 mmol/L (137-145); Total Protein 7.5 g/dL (6.3-8.2); Triglycerides 161 mg/dL (35-150)
== END ==
PROVIDERS: Family Provider Family Medicine; PCP Internal Medicine; Referring Provider Internal Medicine; Visit Provider Internal Medicine
DX: R94.5 Abnormal results of liver function studies (principal); Z13.220 Encounter for screening for lipoid disorders; Z13.6 Encounter for screening for cardiovascular disorders
CPT/HCPCS: 36415; 80048; 80061; 80076

== ENCOUNTER → 2023-09-26 07:44 | Outpatient (CLI) | payer BC, SELFPAY ==
--- NOTE | 2023-09-26 07:46 | DI.MG.S_ITS ---
BILATERAL DIGITAL SCREENING MAMMOGRAM 3D/2D WITH CAD: 09/26/2023 CLINICAL: Routine screening. Family history of breast cancer. Comparison is made to exams dated: 07/24/2022 mammogram, 06/19/2021 mammogram, and 06/16/2020 mammogram - [facility]. Both breasts are heterogeneously dense, which may obscure small masses (category c / 51-75% glandular tissue). Current study was also evaluated with a Computer Aided Detection (CAD) system. There are benign post operative findings and biopsy clip in the right breast. No significant masses, calcifications, or other findings are seen in either breast. There has been no significant interval change. IMPRESSION: BENIGN There is no mammographic evidence of malignancy. A 1 year screening mammogram is recommended. Based on the Tyrer Cuzick model (a risk assessment model) the patient's lifetime risk is 14.2% and her 10 year risk is 6.3%. According to the ACR, ACS, and NCCN guidelines, an annual breast MRI exam along with mammogram is recommended if the patient's lifetime risk is 20% or greater. This exam was interpreted at Station ID: [id number]. NOTE: For mammograms, a report in lay terms will be sent to the patient. Approximately 15% of breast malignancies will not be visualized mammographically. In the management of a palpable breast mass, a negative mammogram must not discourage biopsy of a clinically suspicious lesion. Electronically Signed By: Sonya Hdez M.D., PH.D eb/penrad:09/26/2023 23:30:31 copy to: JIMMY RUIZ letter sent: Normal Exam ACR BI-RADS Category 2: Benign Finding(s) 3342F
== END ==
LOC: MAMMO 07:45
PROVIDERS: Family Provider Family Medicine; PCP Internal Medicine; Referring Provider Obstetrics & Gynecology; Visit Provider Obstetrics & Gynecology
DX: Z12.31 Encounter for screening mammogram for malignant neoplasm of breast (principal); Z80.3 Family history of malignant neoplasm of breast; R92.333 Mammographic heterogeneous density, bilateral breasts
CPT/HCPCS: 77063; 77067

== ENCOUNTER → 2024-10-07 15:38 | Outpatient (CLI) | payer BC, SELFPAY ==
--- NOTE | 2024-10-07 15:42 | DI.MG.S_ITS ---
MM screening mammo BI: 10/07/2024. BI-RADS: 2 CLINICAL: 64-year old female for bilateral screening mammogram. Tyrer-Cuzick lifetime risk of 13.6%. No personal or first-degree family history of breast cancer. Current reported family history of breast cancer: maternal aunt and second maternal aunt. The patient had a prior right breast biopsy. PRIOR EXAMS 09/26/2023, 07/24/2022, 06/19/2021, 06/16/2020, 05/27/2019, 09/23/2018, 09/16/2017, 09/03/2016, 12/11/2015, 12/05/2014. MAMMOGRAPHY TECHNIQUE: 2D and 3D (tomosynthesis) digital mammographic views obtained, with additional images as needed for full coverage. Current study was also evaluated with a Computer Aided Detection (CAD) system. DENSITY C. The breasts are heterogeneously dense, which may obscure small masses. MAMMOGRAPHY FINDINGS Right: Biopsy marker present on the right. There are no suspicious masses, calcifications, or other findings in the breast. No significant change from comparison. Left: Benign-appearing masses noted on the left. There are no suspicious masses, calcifications, or other findings in the breast. No significant change from comparison. IMPRESSION: * No evidence of malignancy with benign findings. RECOMMENDATIONS Bilateral * Annual screening mammography. OVERALL ASSESSMENT CATEGORY BI-RADS-2: Benign. The [employer] recommends annual screening mammography beginning at age 40 for women with average risk of breast cancer. ELECTRONICALLY SIGNED: Aimee Moreno M.D. on 10/08/2024 at 09:00:45 AM PT Interpreting Station ID: [id number]
== END ==
PROVIDERS: Family Provider Family Medicine; PCP Internal Medicine; Referring Provider Internal Medicine; Visit Provider Internal Medicine
DX: Z12.31 Encounter for screening mammogram for malignant neoplasm of breast (principal); Z80.3 Family history of malignant neoplasm of breast; R92.333 Mammographic heterogeneous density, bilateral breasts
CPT/HCPCS: 77063; 77067

== ENCOUNTER → 2024-11-11 08:55 | Outpatient (CLI) | payer BC, SELFPAY ==
[2024-11-11 10:19] LABS: Alanine Aminotransferase 66 IU/L (<35); Albumin Globulin Ratio 2.4 (1.0-2.8); Alkaline Phosphatase 73 U/L (38-126); Aspartate Aminotransferase 54 IU/L (14-36); BUN Creatinine Ratio 30.3 (6-22); Bilirubin Total 0.8 mg/dL (0.2-1.3); Blood Urea Nitrogen 23 mg/dL (7-17); Carbon Dioxide 27 mmol/L (22-32); Chloride 104 mmol/L (98-107); Cholesterol 232 mg/dL (140-199); Estimated Glomerular Filt Rate > 60 mL/min (>60); Globulin 2.1 g/dL (1.7-4.1); Glucose 109 mg/dL (70-99); HDL Cholesterol 71 mg/dL (40-60); HEMOLYSIS < 15 (0-50); LDL Cholesterol Calculated 146 mg/dL (<100); Potassium 4.5 mmol/L (3.4-5.1); Sodium 140 mmol/L (137-145); Total Protein 7.1 g/dL (6.3-8.2); Triglycerides 75 mg/dL (35-150)
== END ==
PROVIDERS: Family Provider Family Medicine; PCP Internal Medicine; Referring Provider Internal Medicine; Visit Provider Internal Medicine
DX: Z13.6 Encounter for screening for cardiovascular disorders (principal); Z13.220 Encounter for screening for lipoid disorders; Z13.1 Encounter for screening for diabetes mellitus; R94.5 Abnormal results of liver function studies
CPT/HCPCS: 36415; 80053; 80061